=== PATIENT | female | born 1965 | race Hispanic/Latino ===

== ENCOUNTER 2024-01-19 10:05 | Day surgery (SDC) | payer OTHER ==
[2024-01-18 13:00] LABS: Absolute Lymphocytes (CBC) 1.9 K/uL (0.7-4.9); Absolute Monocytes 0.2 K/uL (0.1-1.3); Basophils % 0.2 % (0-1.3); Eosinophils % 0.7 % (0-4.4); Hematocrit 36.9 % (36.0-45.0); Hemoglobin 12.3 g/dL (12.0-15.0); Lymphocytes % 26.7 % (15.3-44.8); MCHC 33.3 g/dL (32.0-36.0); MCV 90.1 fL (80-100); MPV 7.9 fL (7.6-11.3); Monocytes % 3.3 % (3.3-12.3); Neutrophils % 69.1 % (41.7-73.7); Platelets 194 thou/uL (152-406); RBC Red Blood Cell Count 4.09 M/uL (3.86-4.86); Red Cell Distribution Width 12.7 % (12.1-15.2)
[2024-01-18 13:13] LABS: Anion Gap 10.6 mEq/L (5.0-15.0); Potassium 3.6 mEq/L (3.5-5.1)
[2024-01-19] MEDS ORDERED: CEFAZOLIN SODIUM 1 GM/VIAL ONE (10:22)
[2024-01-19] MEDS ORDERED: Ringers Lactate 1,000 ML IV ONE (10:22)
[2024-01-19] MEDS ORDERED: propofoL 200 MG/20 ML VIAL IV ONE (10:40)
[2024-01-19] MEDS ORDERED: LIDOCAINE 2% MPF 5 ML VIAL ONE (10:40)
[2024-01-19] MEDS ORDERED: ONDANSETRON 4 MG/2 ML VIAL ONE (10:40)
[2024-01-19] MEDS ORDERED: MIDAZOLAM HCL 2 MG/2 ML INJ ONE (10:41)
[2024-01-19] MEDS ORDERED: FENTANYL CITR 100 MCG/2 ML ONE (10:41)
[2024-01-19] MEDS ORDERED: dexAMETHasone 10 MG/ML VIAL ONE (11:17)
[2024-01-19] MEDS ORDERED: HYDROMORPHONE HCL 1 MG/ML INJ ONE ×2 (12:13→12:21)
--- NOTE | 2024-01-19 12:39 | RAD REPORT ---
EXAM DESCRIPTION: RAD - Fluoroscopy <1 Hour - 01/19/2024 11:54 am CLINICAL HISTORY: Finger surgery FINDINGS: Three intraoperative fluoroscopic images obtained. Fluoroscopy time 0.7 minutes Pins have been placed into fingers. The surgery performed by Dr. Burleson
--- NOTE | 2024-01-19 13:03 | OP ---
Date of Procedure: 01/19/2024 Surgeon: Lenny Burleson MD Preoperative Diagnosis: Left hand fourth and fifth proximal phalanx fracture with the fourth being c omminuted and displaced. Postoperative Diagnosis: Left hand fourth and fifth proximal phalanx fracture with the fourth being comminuted and displaced. Procedures Performed: 1.Left hand examination under anesthesia. 2.Closed reduction and percutaneous pinning of fourth proximal phalanx fracture. 3.Splinting of fourth and fifth phalanx fractures. Estimated Blood Loss: Less than 3 cc. Complications: There were no complications. Specimens: No pathology specimens sent. Indications For Operation: Ms. Schilling is a 58-year-old, who unfortunately injured both of her hands with direct impact on her right side. She does have a volar plate avulsion of the middle phalanx wi thout displacement. This was treated with debbie taping and early motion in the clinic. On her left side, she does have fractures of the proximal phalanx of the fourth and fifth, the fifth is hard to e xamine in the office because the fourth is comminuted and displaced with obvious angular and rotation al deformity. Risks, benefits, and alternatives of different methods of treating the left hand were discussed with her including close management as well as closed reduction, pinning of one or both of the proximal phalanges almost surely would pin the fourth although fifth we would be able to better e xamine in the operating room. She says she understands things as presented and treatment plan and wa nts to proceed. Description Of Procedure: The patient was taken to the operating room and placed in supine position. General anesthesia was obtained by staff. Following this, a well-padded tourniquet placed on super ior left arm and has not used throughout the case. Following this, left upper extremity was then pre pped and draped in the usual sterile fashion and C-arm was brought in. We feel it is actually diffic ult to see the fracture, may be slightly bent. The fourth is obviously broken and comminuted. Decis ion was made to place two 2.8 pins in standard fashion from proximal to distal. These [address] a[address] in position of reduction. Care being taken to maintain angular and rotational alignment. The p ins crossing appeared to hold the fracture well. The hand was then brought through range of motion a nd did not appear to be any problems with rotation of the fourth or fifth. If it does have any mcneill es of very slight, not feel that this requires pinning. After this, she was placed in a well-padded sterile dressing as well as a volar gutter splint which includes the medial 3 fingers and awakened an d taken to recovery room in good condition. There were no complications. /JOSEPH Voice ID: [id number] Report ID: [id number]
[2024-01-19] MEDS: HYDROCODONE/APAP 7.5/325 MG TAB ONE (13:45)
[2024-01-19 13:58] VITALS: BP 153/75; TEMP 98.1; O2SAT 98
--- NOTE | 2024-01-22 13:04 | EKG ---
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
== END 2024-01-19 13:45 | disposition home or self-care (01) ==
LOC: OR 10:05
PROVIDERS: ATTEND Orthopaedic Surgery
PROC: 0PSV34Z Reposition Left Finger Phalanx with Internal Fixation Device, Percutaneous Approach (ICD-10-PCS; principal; 2024-01-19 11:00)
DX: S62.615A Displaced fracture of proximal phalanx of left ring finger, initial encounter for closed fracture (principal); S62.647A Nondisplaced fracture of proximal phalanx of left little finger, initial encounter for closed fracture
CPT/HCPCS: 93005; 85025; 80048; 36415; 76000; 26727; J2704; J2001; J2250; J3010; J1100; J1170 ×2; J2405; J7120; J0690